=== PATIENT | male | born 1930 | race Caucasian/White ===

== ENCOUNTER → 2017-02-09 11:38 | Outpatient (CLI) | payer MEDICARE | END | disposition home or self-care (01) | LOC: D.CT 11:30 | DX: H53.2 Diplopia (principal) ==

== ENCOUNTER → 2017-10-27 10:24 | Outpatient (CLI) | payer MEDICARE | END | disposition home or self-care (01) | LOC: D.MRI 10:24 | DX: G31.84 Mild cognitive impairment of uncertain or unknown etiology (principal) ==